=== PATIENT | female | born 1995 | race Caucasian/White ===

== ENCOUNTER 2016-03-15 18:20 | Emergency (ER) | payer MEDICAID | END 2016-03-16 03:16 | disposition home or self-care (01) | LOC: ER 18:20 | DX: N92.1 Excessive and frequent menstruation with irregular cycle (principal); N93.8 Other specified abnormal uterine and vaginal bleeding | CPT/HCPCS: 36415; 74176; 80053; 81001; 83690; 84703; 85025; 87491; 87591; 87800 ==